=== PATIENT | male | born 1995 | race Native Hawaiian/Other Pacific Islander ===

== ENCOUNTER 2017-05-15 01:51 | Emergency (ER) | payer OTHER ==
[~2017-05-15] VITALS: Ht 172.7 cm; Wt 117.9 kg
[~2017-05-15 01:51] MED LIST: AMOXICILLIN500 MG PO; ANAPROX DS550 MG PO; ATARAX25 MG PO; BENADRYL25 MG PO; COLACE100 MG PO; FLEXERIL10 MG PO; MIRALAX POWDER17 GM PO; MOTRIN600 MG PO; MOTRIN800 MG PO; NIZORAL A-D 20200 ML TP; NKHM; NKHM PO; PHENERGAN25 M3 PO; PREDNICOT20 MG PO; PREDNISONE10 MG PO; TRIMOX500 MG PO; VICODIN 5-3001 EACH PO; ZITHROMAX Z PA250 MG PO
[2017-05-15 02:06] VITALS: BP 186/81
[2017-05-15] MEDS ORDERED: PROAIR HFA8.5 GM INH (02:53)
[2017-05-15] MEDS ORDERED: ZITHROMAX250 MG PO (02:53)
[2017-05-15] MEDS ORDERED: PREDNISONE20 M1 PO (02:55)
== END 2017-05-15 03:09 | disposition home or self-care (01) ==
LOC: ED 01:51
DX: J20.9 Acute bronchitis, unspecified (principal); J01.90 Acute sinusitis, unspecified; J45.909 Unspecified asthma, uncomplicated; F17.200 Nicotine dependence, unspecified, uncomplicated

== ENCOUNTER 2017-10-11 05:20 | Emergency (ER) | payer SELFPAY ==
[~2017-10-11] VITALS: Ht 172.7 cm; Wt 122.5 kg
[~2017-10-11 05:20] MED LIST changes: +PREDNISONE20 M1 PO; +PROAIR HFA8.5 GM INH; +ZITHROMAX250 MG PO
[2017-10-11 05:23] VITALS: BP 128/66
== END 2017-10-11 05:47 | disposition home or self-care (01) ==
LOC: ED 05:20
DX: H10.11 Acute atopic conjunctivitis, right eye (principal); Z79.2 Long term (current) use of antibiotics

== ENCOUNTER 2018-01-05 04:39 | Emergency (ER) | payer SELFPAY ==
[~2018-01-05] VITALS: Ht 172.7 cm; Wt 122.5 kg
[2018-01-05 04:43] VITALS: BP 128/75
[2018-01-05] MEDS ORDERED: Accuneb 0.1.25 MG/3 INH (05:36)
[2018-01-05] MEDS ORDERED: Motrin,Rufen800 MG PO (05:36)
[2018-01-05] MEDS ORDERED: SILVADENE,SSD C50 GM T (05:55)
== END 2018-01-05 06:06 | disposition home or self-care (01) ==
LOC: ED 04:39
DX: T21.21XA Burn of second degree of chest wall, initial encounter (principal); T22.131A Burn of first degree of right upper arm, initial encounter; T31.0 Burns involving less than 10% of body surface; X08.8XXA Exposure to other specified smoke, fire and flames, initial encounter; Y93.89 Activity, other specified; Y92.89 Other specified places as the place of occurrence of the external cause; Y99.8 Other external cause status

== ENCOUNTER 2019-05-17 22:05 | Emergency (ER) | payer SELFPAY ==
[~2019-05-17] VITALS: Ht 172.7 cm; Wt 106.6 kg
[~2019-05-17 22:05] MED LIST changes: +Accuneb 0.1.25 MG/3 INH; +Motrin,Rufen800 MG PO; +SILVADENE,SSD C50 GM T
[2019-05-17 22:10] VITALS: BP 128/52
== END 2019-05-18 00:16 | disposition home or self-care (01) ==
LOC: ED 22:05
DX: B34.9 Viral infection, unspecified (principal); Z79.899 Other long term (current) drug therapy; Z90.49 Acquired absence of other specified parts of digestive tract

== ENCOUNTER 2019-09-14 14:44 | Emergency (ER) | payer SELFPAY ==
[2019-09-14 14:47] VITALS: BP 145/86
[2019-09-14] MEDS ORDERED: CEPHALEXIN500 M1 PO (15:52)
== END 2019-09-14 16:00 | disposition home or self-care (01) ==
LOC: ED 14:44
DX: R59.0 Localized enlarged lymph nodes (principal); Z79.2 Long term (current) use of antibiotics; Z79.899 Other long term (current) drug therapy; Z90.49 Acquired absence of other specified parts of digestive tract

== ENCOUNTER 2019-10-31 06:43 | Emergency (ER) | payer SELFPAY ==
[~2019-10-31] VITALS: Ht 172.7 cm; Wt 117.9 kg
[~2019-10-31 06:43] MED LIST changes: +CEPHALEXIN500 M1 PO
[2019-10-31 06:52] VITALS: BP 149/86
[2019-10-31 07:39] LABS: BASO % 0.6 % (0.0-1.0); EOS # 0.1 10*3/uL (0.0-0.4); EOS % 0.9 % (1.0-4.0); HEMATOCRIT 41.3 % (42.0-52.0); LYMPH % 28.2 % (27.0-41.0); MEAN CELL VOLUME 78.5 fl (80.0-94.0); MEAN CORPUSCULAR HGB 27.6 pg (27.0-31.0); MEAN CORPUSCULAR HGB CONC 35.1 g/dl (33.0-37.0); MEAN PLATELET VOLUME 8.7 fl (9.6-12.3); MONO # 0.9 10*3/uL (0.1-1.0); MONO % 12.8 % (3.0-9.0); NEUT % 56.9 % (47.0-73.0); PLATELET COUNT AUTOMATED 320 10*3/uL (130-400); RED BLOOD COUNT 5.26 10*6/uL (4.50-5.90); RED CELL DISTRI WIDTH 13.5 % (0-14.5)
[2019-10-31 07:56] LABS: ALBUMIN 3.7 gm/dl (3.1-4.5); ALKALINE PHOSPHATASE 53 U/L (45-117); BUN 13 mg/dl (7-24); CHLORIDE 101 mmol/L (98-107); CREATININE 1.58 mg/dL (0.70-1.30); POTASSIUM 3.4 mmol/L (3.5-5.1); SGOT/AST 26 IU/L (3-35); SGPT/ALT 43 U/L (12-78); SODIUM 136 mmol/L (136-145); TOTAL PROTEIN 7.8 gm/dL (6.4-8.2)
[2019-10-31 08:04] LABS: TROPONIN I < 0.015 ng/ml (<0.045)
[2019-10-31 08:08] LABS: URINE AMPHETAMINES > 1000 (1000ng/ml); URINE BARBITURATES < 200 (200ng/ml); URINE BENZODIAZEPINES < 200 (200ng/ml); URINE CANNABINOIDS (THC) < 50 (50ng/ml); URINE COCAINE > 300 (300ng/ml); URINE METHADONE < 300 (300ng/ml); URINE OPIATES < 300 (300ng/ml)
[2019-10-31 08:10] LABS: URINE PHENCYCLIDINE < 25 (25ng/ml)
== END 2019-10-31 09:14 | disposition home or self-care (01) ==
LOC: ED 06:43
PROVIDERS: Emergency Medicine
DX: R07.9 Chest pain, unspecified (principal); F15.10 Other stimulant abuse, uncomplicated; F14.129 Cocaine abuse with intoxication, unspecified; Z79.899 Other long term (current) drug therapy; Z90.49 Acquired absence of other specified parts of digestive tract

== ENCOUNTER → 2020-07-29 | Outpatient (CLI) | payer SELFPAY | END | disposition home or self-care (01) | LOC: COVID19 12:45 | PROVIDERS: ATTEND Nurse Practitioner Family | DX: R09.89 Other specified symptoms and signs involving the circulatory and respiratory systems (principal); Z20.822 Contact with and (suspected) exposure to COVID-19 ==

== ENCOUNTER 2021-03-26 03:58 | Emergency (ER) | payer OTHER ==
[2021-03-26 03:59] VITALS: BP 157/98
== END 2021-03-26 06:34 | disposition home or self-care (01) ==
LOC: ED 03:58
DX: S02.32XA Fracture of orbital floor, left side, initial encounter for closed fracture (principal); S81.811A Laceration without foreign body, right lower leg, initial encounter; S01.512A Laceration without foreign body of oral cavity, initial encounter; V89.2XXA Person injured in unspecified motor-vehicle accident, traffic, initial encounter; Y93.89 Activity, other specified; Y92.89 Other specified places as the place of occurrence of the external cause; Y99.8 Other external cause status

== ENCOUNTER 2021-04-11 18:51 | Emergency (ER) | payer OTHER ==
[~2021-04-11] VITALS: Ht 172.7 cm; Wt 117.9 kg
[2021-04-11 19:04] VITALS: BP 140/73
[2021-04-11] MEDS ORDERED: NAPROXEN250 MG PO (20:03)
== END 2021-04-11 20:08 | disposition home or self-care (01) ==
LOC: ED 18:51
DX: M25.551 Pain in right hip (principal)

== ENCOUNTER 2022-05-08 18:21 | Emergency (ER) | payer SELFPAY ==
[~2022-05-08 18:21] MED LIST changes: +NAPROXEN250 MG PO
[2022-05-08 18:36] VITALS: BP 155/80
== END 2022-05-08 19:31 | disposition home or self-care (01) ==
LOC: ED 18:21
DX: L98.9 Disorder of the skin and subcutaneous tissue, unspecified (principal); Z90.49 Acquired absence of other specified parts of digestive tract

== ENCOUNTER 2025-03-16 03:49 | Emergency (ER) | payer OTHER ==
[~2025-03-16] VITALS: Ht 172.7 cm; Wt 95.3 kg
[2025-03-16 04:01] VITALS: BP 142/87
[2025-03-16 05:42] LABS: BUN 20 mg/dl (9-23)
[2025-03-16 06:06] LABS: BASO # 0.0 10*3/uL (0.0-0.1); BASO % 0.6 % (0.0-1.0); EOS # 0.2 10*3/uL (0.0-0.4); EOS % 4.3 % (1.0-4.0); MEAN CELL VOLUME 81.4 fl (80.0-94.0); MEAN CORPUSCULAR HGB 29.3 pg (27.0-31.0); MEAN PLATELET VOLUME 9.1 fl (9.6-12.3); MONO # 0.5 10*3/uL (0.1-1.0); MONO % 9.9 % (3.0-9.0); NEUT # 1.6 10*3/uL (2.3-7.9); NEUT % 33.8 % (47.0-73.0); NUCLEATED RED BLOOD CELL 0.0 % (0.0-0.0); NUCLEATED RED BLOOD CELL 0.0 10*3/uL (0.0-0.0); PLATELET COUNT AUTOMATED 284 10*3/uL (130-400); RED CELL DISTRI WIDTH 13.0 % (0-14.5)
== END 2025-03-16 07:53 | disposition home or self-care (01) ==
LOC: ED 03:49
PROVIDERS: Student in an Organized Health Care Education/Training Program
DX: R07.89 Other chest pain (principal); Z79.899 Other long term (current) drug therapy